=== PATIENT | female | born 1990 | race Hispanic/Latino ===

== ENCOUNTER 2017-10-21 15:03 | Emergency (ER) | payer BC | END 2017-10-21 16:17 | disposition home or self-care (01) | LOC: EDH 15:03 | DX: N92.6 Irregular menstruation, unspecified (principal) | CPT/HCPCS: 36415; 84702; 86900; 86901 ==

== ENCOUNTER 2018-03-26 15:06 | Emergency (ER) | payer BC ==
[2018-03-26] MEDS ORDERED: LIDOCAINE HCL-MPF 1% 2ML VIAL ONE (15:15)
== END 2018-03-26 15:39 | disposition home or self-care (01) ==
LOC: EDH 15:06
DX: H66.91 Otitis media, unspecified, right ear (principal)
CPT/HCPCS: 99284; J3490

== ENCOUNTER 2019-05-04 13:08 | Emergency (ER) | payer BC, OTHER ==
[2019-05-04] MEDS ORDERED: ACETAMINOPHEN EXTRA STRENGTH 500 MG TABLET ONE (14:28)
== END 2019-05-04 14:38 | disposition home or self-care (01) ==
LOC: EDH 13:08
DX: J06.9 Acute upper respiratory infection, unspecified (principal); M94.0 Chondrocostal junction syndrome [Tietze]; J45.909 Unspecified asthma, uncomplicated
CPT/HCPCS: 71046; 93005

== ENCOUNTER 2019-12-19 17:26 | Emergency (ER) | payer SELFPAY | END 2019-12-19 17:31 | disposition left against medical advice (07) | LOC: EDH 17:26 | DX: R05 Cough (principal); Z53.21 Procedure and treatment not carried out due to patient leaving prior to being seen by health care provider ==

== ENCOUNTER 2020-09-23 08:58 | Emergency (ER) | payer OTHER ==
[2020-09-23] MEDS ORDERED: KETOROLAC TROMETHAMINE 60 MG/2 ML VIAL ONE (09:50)
== END 2020-09-23 10:20 | disposition home or self-care (01) ==
LOC: EDH 08:58 → EEVIPCON 08:58 → EDH 10:20
DX: S13.8XXA Sprain of joints and ligaments of other parts of neck, initial encounter (principal); S43.492A Other sprain of left shoulder joint, initial encounter; J45.909 Unspecified asthma, uncomplicated; X58.XXXA Exposure to other specified factors, initial encounter; Y93.89 Activity, other specified; Y92.098 Other place in other non-institutional residence as the place of occurrence of the external cause; Y99.8 Other external cause status
CPT/HCPCS: 96372; 99283; J1885

== ENCOUNTER 2020-10-29 05:54 | Day surgery (SDC) | payer OTHER ==
[2020-10-25 12:50] LABS: BASOPHILS % (AUTO) 1.2 % (0.0-5.0); EOSINOPHILS % (AUTO) 3.3 % (0.0-8.0); HEMATOCRIT 41.3 % (36-48); LYMPHOCYTES % (AUTO) 32.7 % (21.0-51.0); MEAN CORPUSCULAR HEMOGLOBIN 30.5 pg (27.0-33.0); MEAN CORPUSCULAR HGB CONC 34.6 g/dL (32.0-36.0); MEAN CORPUSCULAR VOLUME 88.1 fL (79-99); MONOCYTES % (AUTO) 5.4 % (3.0-13.0); NEUTROPHILS % (AUTO) 57.2 % (40.0-77.0); PLATELET COUNT (AUTO) 425 K/uL (130-400); RED BLOOD CELL COUNT(AUTO) 4.69 MIL/uL (4.00-5.50); RED CELL DISTRIBUTION WIDTH 11.9 % (11.0-15.5); WHITE BLOOD COUNT (AUTO) 5.2 K/uL (4.8-10.8)
[2020-10-26 09:14] VITALS: BP 123/80
[2020-10-29] VITALS (17 sets, daily range): BP systolic 128–154; BP diastolic 80–93
[~2020-10-29] VITALS: Ht 165.1 cm; Wt 79.4 kg
[~2020-10-29 05:54] MED LIST: CHRO1TAB4 PO; LORA-868 PO; OMEGA 3 PO; [UNRECOGNIZED DRUG - OTHER] PO; [UNRECOGNIZED DRUG - OTHER] PO
[2020-10-29] MEDS: CALDOLOR 800MG+NS 250ML 250 ML IV SCH ×2 (06:00→07:45)
[2020-10-29] MEDS: CEFAZOLIN SODIUM 1 GM VIAL IVP SCH ×2 (06:00→07:18)
[2020-10-29] MEDS: LACTATED RINGERS 1000ML 1,000 ML IV SCH ×2 (06:24→07:45)
[2020-10-29] MEDS ORDERED: STRONG IODINE SOLN 14ML BOTTLE ONE (06:30)
[2020-10-29] MEDS ORDERED: LIDOCAINE PF 2% 5ML ABBOJECT ONE (06:59)
[2020-10-29] MEDS ORDERED: PROPOFOL 10 MG/ML 20ML VIAL IV ONE (06:59)
[2020-10-29] MEDS ORDERED: MIDAZOLAM HCL 1 MG/ML 2ML VIAL ONE (06:59)
[2020-10-29] MEDS ORDERED: FENTANYL CITRATE PF 50 MCG/1 ML 2ML VIAL ONE (07:00)
[2020-10-29] MEDS ORDERED: ONDANSETRON HCL 4 MG/2 ML VIAL ONE ×2 (07:00→07:58)
[2020-10-29] MEDS ORDERED: ROCURONIUM 10MG/1ML SYR 10 MG/ML ML ONE (07:00)
[2020-10-29] MEDS ORDERED: MEPERIDINE-PF 25 MG/ML SYG ONE ×2 (07:57→08:11)
[2020-10-29] MEDS ORDERED: METOCLOPRAMIDE 10 MG/2 ML VIAL ONE (07:57)
== END 2020-10-29 09:30 | disposition home or self-care (01) ==
LOC: DAH 05:54
PROVIDERS: ATTEND Obstetrics & Gynecology
DX: R87.613 High grade squamous intraepithelial lesion on cytologic smear of cervix (HGSIL) (principal); Z20.828 Contact with and (suspected) exposure to other viral communicable diseases; N85.4 Malposition of uterus; J45.909 Unspecified asthma, uncomplicated
CPT/HCPCS: 36415 ×2; 57520; 84703; 85025; 86850 ×2; 86900 ×2; 86901 ×2; A4215; A4216; A4221; A4222; A4223; A4351; A4663; A6260; C9803; J0690; J1741 ×2; J2001; J2175 ×2; J2250; J2405 ×2; J2704; J2765; J3010; J7120; U0003